=== PATIENT | female | born 1955 | race Caucasian/White ===

== ENCOUNTER 2019-09-16 19:07 | Emergency (ER) | payer OTHER ==
[~2019-09-16] VITALS: Ht 157.5 cm; Wt 90.0 kg
--- NOTE | 2019-09-16 19:37 | PHYS DOC ---
Past Medical History Past Medical History: High Cholesterol Additional Past Surgical Histo: gastric sleeve Smoking Status: Never Smoker Alcohol Use: None Adult General Chief Complaint Chief Complaint: CHEST PAIN-CARDIAC NATURE HPI HPI 64-year-old female presents to the emergency Department complaints of chest heaviness, abdominal discomfort. Patient states she was sitting in a chair and had a sudden onset of not feeling well with the symptoms above. She describes nausea. Pain and heaviness did not move any particular direction, state in one spot. Nothing makes this better, nothing makes this worse. She denies any shortness of breath however did have some lightheadedness. Patient denies any syncopal episode. She has underlying history of hyperlipidemia. No past medical history of hypertension or diabetes. Patient currently denies any nausea at this time or vomiting. She denies any diarrhea. She has no underlying history of coronary artery disease. Review of Systems Review of Systems Constitutional: Denies fever or chills [] Respiratory: Denies cough or shortness of breath [] Cardiovascular: No additional information not addressed in HPI [] GI: abdominal pain, nausea, no vomiting, bloody stools or diarrhea [] : Denies dysuria or hematuria [] Musculoskeletal: Denies back pain or joint pain [] Neurologic: Denies headache, focal weakness or sensory changes [] All other systems were reviewed and found to be within normal limits, except as documented in this note. Current Medications Current Medications Current Medications Medications (Trade) Dose Ordered Sig/Tanner Start Time Stop Time Status Last Admin Dose Admin Aspirin (Children'S Aspirin) 324 mg 1X ONCE 09/16/19 19:30 09/16/19 19:38 DC 09/16/19 19:50 324 MG Hydralazine HCl (Apresoline Inj) 10 mg 1X ONCE 09/16/19 20:45 09/16/19 20:46 DC 09/16/19 20:44 10 MG Allergies Allergies Allergies Coded Allergies Type Severity Reaction Last Updated Verified No Known Drug Allergies 09/16/19 No Physical Exam Physical Exam Constitutional: Well developed, well nourished, no acute distress, non-toxic appearance. [] HENT: Normocephalic, atraumatic, bilateral external ears normal, oropharynx moist, no oral exudates, nose normal. [] Eyes: PERRLA, EOMI, conjunctiva normal, no discharge. [] Cardiovascular:Heart rate regular rhythm, no murmur [] Lungs & Thorax: Bilateral breath sounds clear to auscultation [] Abdomen: Bowel sounds normal, soft, no tenderness, no masses, no pulsatile masses. [] Skin: Warm, dry, no erythema, no rash. [] Back: No tenderness, no CVA tenderness. [] Extremities: No tenderness, no edema. [] Neurologic: Alert and oriented X 3, no focal deficits noted. [] Psychologic: Affect normal, judgement normal, mood normal. [] Current Patient Data Vital Signs Vital Signs Date Time Temp Pulse Resp B/P (MAP) Pulse Ox O2 Delivery O2 Flow Rate FiO2 09/16/19 21:30 85 16 184/84 (117) 96 Room Air 09/16/19 19:08 97.7 97.7 Lab Values Laboratory Tests Test 09/16/19 19:20 09/16/19 22:10 White Blood Count 8.6 x10^3/uL (4.0-11.0) Red Blood Count 4.65 x10^6/uL (3.50-5.40) Hemoglobin 14.1 g/dL (12.0-15.5) Hematocrit 42.7 % (36.0-47.0) Mean Corpuscular Volume 92 fL (79-100) Mean Corpuscular Hemoglobin 30 pg (25-35) Mean Corpuscular Hemoglobin Concent 33 g/dL (31-37) Red Cell Distribution Width 13.2 % (11.5-14.5) Platelet Count 223 x10^3/uL (140-400) Neutrophils (%) (Auto) 60 % (31-73) Lymphocytes (%) (Auto) 33 % (24-48) Monocytes (%) (Auto) 6 % (0-9) Eosinophils (%) (Auto) 1 % (0-3) Basophils (%) (Auto) 0 % (0-3) Neutrophils # (Auto) 5.2 x10^3/uL (1.8-7.7) Lymphocytes # (Auto) 2.9 x10^3/uL (1.0-4.8) Monocytes # (Auto) 0.5 x10^3/uL (0.0-1.1) Eosinophils # (Auto) 0.1 x10^3/uL (0.0-0.7) Basophils # (Auto) 0.0 x10^3/uL (0.0-0.2) Sodium Level 142 mmol/L (136-145) Potassium Level 3.4 mmol/L (3.5-5.1) L Chloride Level 105 mmol/L (98-107) Carbon Dioxide Level 28 mmol/L (21-32) Anion Gap 9 (6-14) Blood Urea Nitrogen 17 mg/dL (7-20) Creatinine 0.9 mg/dL (0.6-1.0) Estimated GFR (Cockcroft-Gault) 63.2 BUN/Creatinine Ratio 19 (6-20) Glucose Level 96 mg/dL (70-99) Calcium Level 9.4 mg/dL (8.5-10.1) Magnesium Level 2.0 mg/dL (1.8-2.4) Total Bilirubin 0.4 mg/dL (0.2-1.0) Aspartate Amino Transferase (AST) 73 U/L (15-37) H Alanine Aminotransferase (ALT) 43 U/L (14-59) Alkaline Phosphatase 90 U/L (46-116) Troponin I Quantitative < 0.017 ng/mL (0.000-0.055) < 0.017 ng/mL (0.000-0.055) GF-Vdt-G-Type Natriuretic Peptide 173 pg/mL (0-124) H Total Protein 7.4 g/dL (6.4-8.2) Albumin 3.8 g/dL (3.4-5.0) Albumin/Globulin Ratio 1.1 (1.0-1.7) Lipase 214 U/L (73-393) Laboratory Tests 09/16/19 19:20 Laboratory Tests 09/16/19 19:20 EKG EKG EKG 1923 - heart rate 77, LAD, No STEMI[] Radiology/Procedures Radiology/Procedures [facility] [address] [place], [place] [id number] IMAGING REPORT Signed PATIENT: CEFERINO CHEW ACCOUNT: [id number] : 1955 LOCATION: ER AGE: 64 SEX: F EXAM STATUS: PRE ER ORD. PHYSICIAN: NELDA SEGURA MD REASON: chest/epigastric pain PROCEDURE: PORTABLE CHEST 1V Exam: Chest one view INDICATION: Chest/epigastric pain TECHNIQUE: Frontal view of the chest Comparisons: None FINDINGS: The cardiomediastinal silhouette and pulmonary vessels are within normal limits. The lung and pleural spaces are clear. IMPRESSION: No acute cardiopulmonary process. Electronically signed by: Soledad Jeffries MD (09/16/2019 8:07 PM) [id number] DICTATED and SIGNED BY: SOLEDAD JEFFRIES MD DATE: 09/16/192006 [] Course & Med Decision Making Course & Med Decision Making Pertinent Labs and Imaging studies reviewed. (See chart for details) []64-year-old female presents to the emergency Department complaints of chest heaviness, abdominal discomfort. Patient states she was sitting in a chair and had a sudden onset of not feeling well with the symptoms above. She describes n ausea. Pain and heaviness did not move any particular direction, state in one spot. Nothing makes this better, nothing makes this worse. She denies any shortness of breath however did have some lightheadedness. Patient denies any syncopal episode. She has underlying history of hyperlipidemia. No past medical history of hypertension or diabetes. Patient currently denies any nausea at this time or vomiting. She denies any diarrhea. She has no underlying history of coronary artery disease. Labs/Imaging reviewed Chest negative for acute process Troponin negative x 2 Patient without continued symptoms Recommend dc home and follow up with PCP BP elevated given hydralazine in ER Dragon Disclaimer Dragon Disclaimer This electronic medical record was generated, in whole or in part, using a voice recognition dictation system. The HEART Score for CP Pts HEART Score for Chest Pain: HEART Score for Chest Pain Response (Comments) Value History Slighlty/Non-Suspicious 0 ECG Nonspecific Repolarizatio 1 Age >45 - < 65 1 Risk Factors 1 or 2 Risk Factors 1 Troponin < Normal Limit 0 Total 3 Risk Factors: Risk Factors: DM, Current or recent (<one month) smoker, HTN, HLP, family history of CAD, obesity. Risk Scores: Score 0 - 3: 2.5% MACE over next 6 weeks - Discharge Home Score 4 - 6: 20.3% MACE over next 6 weeks - Admit for Clinical Observation Score 7 - 10: 72.7% MACE over next 6 weeks - Early Invasive Strategies Departure Departure Impression: Primary Impression: Chest pain Additional Impression: Hypertension Disposition: 01 HOME, SELF-CARE Condition: IMPROVED Patient Instructions: Chest Pain Observation Additional Instructions: Recommend follow up with PCP for elevated BP Cardiac enzymes negative in ER EKG without acute findings concerning for acute cardiac event Return to the ER with worsening symptoms, returned chest pain, nausea/vomiting, syncope Problem Qualifiers Primary Impression: Chest pain Chest pain type: unspecified Qualified Codes: R07.9 - Chest pain, unspecified Additional Impression: Hypertension Hypertension type: essential hypertension Qualified Codes: I10 - Essential (primary) hypertension NELDA SEGURA MD Sep 16, 2019 19:37
[2019-09-16 19:50] LABS: BASO % 0 % (0-3); EOS # 0.1 x10^3/uL (0.0-0.7); EOS % 1 % (0-3); HEMATOCRIT 42.7 % (36.0-47.0); HEMOGLOBIN 14.1 g/dL (12.0-15.5); LYMPH # 2.9 x10^3/uL (1.0-4.8); LYMPH % 33 % (24-48); MEAN CORPUSCULAR HEMOGLOBIN 30 pg (25-35); MEAN CORPUSCULAR HGB CONC 33 g/dL (31-37); MEAN CORPUSCULAR VOLUME 92 fL (79-100); MONO # 0.5 x10^3/uL (0.0-1.1); MONO % 6 % (0-9); NEUT # 5.2 x10^3/uL (1.8-7.7); NEUT % 60 % (31-73); PLATELET COUNT 223 x10^3/uL (140-400); RED BLOOD COUNT 4.65 x10^6/uL (3.50-5.40); RED CELL DISTRIBUTION WIDTH 13.2 % (11.5-14.5); WHITE BLOOD COUNT 8.6 x10^3/uL (4.0-11.0)
[2019-09-16] MEDS: ASPIRIN CHEWABLE 81 MG TABLET. PO ONE (19:50)
[2019-09-16 19:54] LABS: CALCIUM 9.4 mg/dL (8.5-10.1); CREATININE 0.9 mg/dL (0.6-1.0); GFR 63.2; POTASSIUM 3.4 mmol/L (3.5-5.1)
[2019-09-16 20:00] LABS: ALBUMIN 3.8 g/dL (3.4-5.0); ALBUMIN/GLOBULIN RATIO 1.1 (1.0-1.7); TOTAL BILIRUBIN 0.4 mg/dL (0.2-1.0); TOTAL PROTEIN 7.4 g/dL (6.4-8.2)
--- NOTE | 2019-09-16 20:09 | RAD ---
Exam: Chest one view INDICATION: Chest/epigastric pain TECHNIQUE: Frontal view of the chest Comparisons: None FINDINGS: The cardiomediastinal silhouette and pulmonary vessels are within normal limits. The lung and pleural spaces are clear. IMPRESSION: No acute cardiopulmonary process. Electronically signed by: Soledad Kruger MD (09/16/2019 8:07 PM) [id number]
[2019-09-16] MEDS: hydrALAZINE 20 MG/ML VIAL. IVP ONE (20:44)
[2019-09-16] MEDS ORDERED: cloNIDine HCL 0.1 MG TABLET ONE (23:00)
[2019-09-16 23:02] VITALS: BP 202/91
[2019-09-16] MEDS: cloNIDine HCL 0.1 MG TABLET PO ONE (23:02)
--- NOTE | 2019-09-17 09:09 | EKG ---
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
== END 2019-09-16 23:11 | disposition home or self-care (01) ==
LOC: ER 19:07
DX: R07.89 Other chest pain (principal); I10 Essential (primary) hypertension; R42 Dizziness and giddiness; E78.00 Pure hypercholesterolemia, unspecified; E78.5 Hyperlipidemia, unspecified
CPT/HCPCS: 36415; 71045; 80053; 83690; 83735; 83880; 84484; 85025; 93005; 96374; 99285; J0360